=== PATIENT | male | born 1985 | race Caucasian/White ===

== ENCOUNTER 2020-09-01 13:47 | Outpatient (REF) | payer OTHER, SELFPAY ==
--- NOTE | 2020-09-01 13:53 | XR_ITS ---
EXAMINATION: XR HIP, LEFT CLINICAL INFORMATION: Left hip pain COMPARISON: None TECHNIQUE: Two views of the left hip. FINDINGS: There is no fracture or dislocation or destructive process. Bony mineralization appears normal. There is no joint narrowing or erosive change or chondrocalcinosis. 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 The left SI joint and pubis are unremarkable. XR/XR hip LT min 2V IMPRESSION: Normal left hip.
== END 2020-09-01 13:48 | disposition home or self-care (01) ==
LOC: HO.HMGCX 13:47
PROVIDERS: PCP Nurse Practitioner Family; Visit Provider Nurse Practitioner Family
DX: M25.552 Pain in left hip (principal)
CPT/HCPCS: 73502

== ENCOUNTER 2020-10-28 11:20 | Outpatient (REF) | payer OTHER, SELFPAY ==
[2020-10-28 14:38] LABS: Alanine Aminotransferase 74 U/L (0-40); Albumin Level 4.5 g/dL (3.5-5.0); Alkaline Phosphatase 65 U/L (39-117); Anion Gap 15 (12-20); Aspartate Amino Transferase 28 U/L (5-37); Bilirubin Total 0.9 mg/dL (0.0-1.0); Blood Urea Nitrogen 13 mg/dL (9-16); Carbon Dioxide 27 mmol/L (22-29); Chloride 100 mmol/L (96-108); Cholesterol 207 mg/dL; Estimated Glomerular Filt Rate > 60; Glucose Fasting 101 mg/dL (60-99); HDL Cholesterol 59 mg/dL; LDL Cholesterol Calculated 133 mg/dl; Potassium 4.3 mmol/l (3.3-5.1); Sodium 138 mmol/L (135-145); Total Protein 7.4 g/dL (6.5-8.0); Triglycerides 76 mg/dL
== END 2020-10-28 11:21 | disposition home or self-care (01) ==
LOC: HO.HMGCLDS 11:20
PROVIDERS: PCP Nurse Practitioner Family; Visit Provider Nurse Practitioner Family
DX: I10 Essential (primary) hypertension (principal)
CPT/HCPCS: 36415; 80053; 80061; 84443

== ENCOUNTER 2021-02-23 09:43 | Outpatient (REF) | payer OTHER, SELFPAY ==
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
== END 2021-02-23 09:44 | disposition home or self-care (01) ==
LOC: HO.HMGCX 09:43
PROVIDERS: PCP Nurse Practitioner Family; Visit Provider Nurse Practitioner Family
DX: S49.91XA Unspecified injury of right shoulder and upper arm, initial encounter (principal); X58.XXXA Exposure to other specified factors, initial encounter; Y93.9 Activity, unspecified; Y92.9 Unspecified place or not applicable; Y99.9 Unspecified external cause status
CPT/HCPCS: 73030

== ENCOUNTER → 2021-03-08 10:26 | Outpatient (BNVA) | payer OTHER, SELFPAY | PROVIDERS: PCP Nurse Practitioner Family; Visit Provider Internal Medicine | DX: F10.10 Alcohol abuse, uncomplicated (principal); R74.8 Abnormal levels of other serum enzymes | CPT/HCPCS: 80305; 99202 ==

== ENCOUNTER → 2021-03-12 10:17 | Outpatient (BNVA) | payer OTHER, SELFPAY | PROVIDERS: PCP Nurse Practitioner Family; Visit Provider Internal Medicine | DX: F10.10 Alcohol abuse, uncomplicated (principal) | CPT/HCPCS: 80305; 96372; 99212 ==

== ENCOUNTER → 2021-03-16 14:32 | Outpatient (BNVA) | payer OTHER, SELFPAY | PROVIDERS: Visit Provider Internal Medicine ==

== ENCOUNTER → 2021-03-26 10:54 | Outpatient (BNVA) | payer OTHER, SELFPAY | PROVIDERS: Visit Provider Internal Medicine | DX: F10.980 Alcohol use, unspecified with alcohol-induced anxiety disorder (principal) | CPT/HCPCS: 99211 ==

== ENCOUNTER 2021-06-03 11:19 | Outpatient (REF) | payer OTHER, SELFPAY | END 2021-06-03 11:20 | disposition home or self-care (01) | LOC: HO.LNP 11:19 | PROVIDERS: Visit Provider Hospitalist | DX: Z20.822 Contact with and (suspected) exposure to COVID-19 (principal) | CPT/HCPCS: U0003; U0005 ==

== ENCOUNTER 2021-06-29 14:09 | Outpatient (REF) | payer OTHER, SELFPAY ==
[2021-06-29 18:09] LABS: Alanine Aminotransferase 50 U/L (0-40); Albumin Level 4.3 g/dL (3.5-5.0); Alkaline Phosphatase 74 U/L (39-117); Anion Gap 13 (12-20); Aspartate Amino Transferase 18 U/L (5-37); Blood Urea Nitrogen 11 mg/dL (9-16); Calcium 9.6 mg/dL (8.4-10.2); Carbon Dioxide 27 mmol/L (22-29); Chloride 102 mmol/L (96-108); Estimated Glomerular Filt Rate > 60; Glucose Random 99 mg/dL (60-115); Potassium 4.1 mmol/L (3.3-5.1); Sodium 138 mmol/L (135-145); Total Protein 7.4 g/dL (6.5-8.0)
== END 2021-06-29 14:10 | disposition home or self-care (01) ==
LOC: HO.HMGCLDS 14:09
PROVIDERS: PCP Nurse Practitioner Family; Visit Provider Nurse Practitioner Family
DX: U07.1 COVID-19 (principal)
CPT/HCPCS: 36415; 80053

== ENCOUNTER 2022-08-02 10:34 | Outpatient (REF) | payer OTHER, SELFPAY ==
[2022-08-02 14:15] LABS: MANUAL DIFF FLAG NO
[2022-08-02 14:22] LABS: Appearance Urine Clear; Color Urine Yellow; Glucose Urine UA Negative (Negative); Leukocyte Esterase Urine Negative (Negative); Nitrite Urine Negative (Negative); PH 6.5 (5.0-9.0); Urine Blood Negative (Negative); Urine Ketones Negative (Negative); Urine Protein Negative (Neg-Trace)
[2022-08-02 14:26] LABS: Basophils Absolute Auto 0.1 X10*3/uL (0.0-0.2); Basophils Percent Auto 0.8 % (0-2); Eosinophils Absolute Auto 0.2 X10*3/uL (0.0-0.4); Eosinophils Percent Auto 2.4 % (0-4); Hematocrit 45.4 % (42.0-52.0); Hemoglobin 15.2 g/dl (14.0-18.0); Imm Gran Abs Auto 0.03 X10*3/uL (0.00-0.03); Imm Gran Pct Auto 0.4 % (0.0-0.4); Lymphocytes Absolute Auto 2.3 X10*3/uL (1.2-4.9); Lymphocytes Percent Auto 32.1 % (20-40); Mean Corpuscular HGB Conc 33.5 g/dl (31.0-36.0); Mean Corpuscular Volume 98.7 fL (80.0-98.0); Mean Platelet Volume 11.1 fL (9.4-12.4); Monocytes Absolute Auto 0.7 X10*3/uL (0.1-1.2); Monocytes Percent Auto 9.1 % (2-11); Neutrophils Absolute Auto 3.9 x10*3/uL (2.0-8.3); Neutrophils Percent Auto 55.2 % (45-73); Platelet Count 235 X10*3/uL (160-400); White Blood Count 7.1 X10*3/uL (4.8-10.8)
[2022-08-02 14:56] LABS: Alanine Aminotransferase 98 U/L (0-40); Albumin Level 4.4 g/dL (3.5-5.0); Alkaline Phosphatase 68 U/L (39-117); Anion Gap 17 (12-20); Aspartate Amino Transferase 30 U/L (5-37); Bilirubin Total 0.6 mg/dL (0.0-1.0); Blood Urea Nitrogen 11 mg/dL (9-16); Calcium 9.6 mg/dL (8.4-10.2); Carbon Dioxide 25 mmol/L (22-29); Chloride 99 mmol/L (96-108); Cholesterol 214 mg/dL; Estimated Glomerular Filt Rate > 60; Glucose Fasting 102 mg/dL (60-99); HDL Cholesterol 52 mg/dL; LDL Cholesterol Calculated 143 mg/dl; Potassium 4.6 mmol/L (3.3-5.1); Sodium 136 mmol/L (135-145); Total Protein 7.4 g/dL (6.5-8.0); Triglycerides 95 mg/dL
[2022-08-02 15:06] LABS: TSH reflex Free T4 1.01 uIU/mL (0.32-4.0)
== END 2022-08-02 10:35 | disposition home or self-care (01) ==
LOC: HO.HMGCLDS 10:34
PROVIDERS: PCP Nurse Practitioner Family; Visit Provider Nurse Practitioner Family
DX: Z00.00 Encounter for general adult medical examination without abnormal findings (principal)
CPT/HCPCS: 36415; 80053; 80061; 81003; 84443; 85025

== ENCOUNTER 2022-10-01 13:47 | Outpatient (REF) | payer OTHER, SELFPAY ==
[2022-10-01 15:03] LABS: Influenza A PCR NEGATIVE (Negative); Influenza B PCR NEGATIVE (Negative); Resp Syncy Virus RNA Qual PCR NEGATIVE (Negative); SARS COV2 PCR INHOUSE NEGATIVE (Negative)
== END 2022-10-01 13:48 | disposition home or self-care (01) ==
LOC: HO.LNP 13:47
PROVIDERS: Visit Provider Physician Assistant Medical
DX: Z20.822 Contact with and (suspected) exposure to COVID-19 (principal); R05.9 Cough, unspecified
CPT/HCPCS: 0241U

== ENCOUNTER 2022-10-30 10:27 | Emergency (ER) | payer OTHER, SELFPAY ==
[2022-10-30 10:32] VITALS: BP 145/82; PULSE 95; RESP 18; TEMP 36.8; O2SAT 97; BMI 51.7
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
== END 2022-10-30 12:11 | disposition home or self-care (01) ==
PROVIDERS: Emergency Provider Emergency Medicine; PCP Nurse Practitioner Family
DX: S13.4XXA Sprain of ligaments of cervical spine, initial encounter (principal); S39.012A Strain of muscle, fascia and tendon of lower back, initial encounter; V43.52XA Car driver injured in collision with other type car in traffic accident, initial encounter; Y93.9 Activity, unspecified; Y92.410 Unspecified street and highway as the place of occurrence of the external cause; Y99.9 Unspecified external cause status
CPT/HCPCS: 99283

== ENCOUNTER 2023-09-11 09:21 | Outpatient (REF) | payer OTHER, SELFPAY ==
[2023-09-11 11:13] LABS: MANUAL DIFF FLAG NO
[2023-09-11 11:38] LABS: Basophils Absolute Auto 0.1 X10*3/uL (0.0-0.2); Basophils Percent Auto 1.3 % (0-2); Eosinophils Absolute Auto 0.2 X10*3/uL (0.0-0.4); Eosinophils Percent Auto 2.4 % (0-4); Hematocrit 43.5 % (42.0-52.0); Hemoglobin 14.8 g/dl (14.0-18.0); Imm Gran Abs Auto 0.07 X10*3/uL (0.00-0.03); Lymphocytes Absolute Auto 2.5 X10*3/uL (1.2-4.9); Lymphocytes Percent Auto 36.4 % (20-40); Mean Platelet Volume 10.6 fL (9.4-12.4); Monocytes Absolute Auto 0.7 X10*3/uL (0.1-1.2); Monocytes Percent Auto 9.6 % (2-11); Neutrophils Absolute Auto 3.4 x10*3/uL (2.0-8.3); Neutrophils Percent Auto 49.3 % (45-73); Platelet Count 222 X10*3/uL (160-400); Red Blood Count 4.35 X10*6/uL (4.60-5.80)
[2023-09-11 11:48] LABS: Appearance Urine Clear; Color Urine Yellow; Glucose Urine UA Negative (Negative); Leukocyte Esterase Urine Negative (Negative); Nitrite Urine Negative (Negative); Urine Blood Negative (Negative); Urine Ketones Negative (Negative); Urine Protein Negative (Neg-Trace)
[2023-09-11 12:10] LABS: Alanine Aminotransferase 49 U/L (0-40); Albumin Level 4.1 g/dL (3.5-5.0); Alkaline Phosphatase 81 U/L (39-117); Anion Gap 11 (12-20); Aspartate Amino Transferase 22 U/L (5-37); Bilirubin Total 0.3 mg/dL (0.0-1.0); Blood Urea Nitrogen 12 mg/dL (9-16); Carbon Dioxide 26 mmol/L (22-29); Chloride 104 mmol/L (96-108); Cholesterol 195 mg/dL (<200); Estimated Glomerular Filt Rate > 60; Glucose Fasting 92 mg/dL (60-99); HDL Cholesterol 53 mg/dL (>40); LDL Cholesterol Calculated 117 mg/dL (<100); Potassium 4.1 mmol/L (3.3-5.1); Sodium 137 mmol/L (135-145); Total Protein 7.3 g/dL (6.5-8.0); Triglycerides 127 mg/dL (<150)
[2023-09-11 12:28] LABS: TSH reflex Free T4 1.12 uIU/mL (0.32-4.0)
== END 2023-09-11 09:22 | disposition home or self-care (01) ==
LOC: HO.HMGCLDS 09:21
PROVIDERS: PCP Nurse Practitioner Family; Visit Provider Nurse Practitioner Family
DX: Z00.00 Encounter for general adult medical examination without abnormal findings (principal)
CPT/HCPCS: 36415; 80053; 80061; 81003; 84443; 85025

== ENCOUNTER 2024-05-01 08:22 | Outpatient (AMB) | payer OTHER, SELFPAY ==
--- NOTE | 2024-05-01 08:23 | MHC.PC.OV ---
Vital Signs 05/01/24 08:25 Height 5 ft 9 in Weight 356 lb BMI 52.6 BP 120/84 Blood Pressure Location Lt brachial Position Sitting Pulse 90 Pulse Source Pulse Oximeter Pulse Oximetry (%) 98 Oxygen Delivery Method Room Air Intake Visit Reasons: Overdue for Annual PE Intake Note: Patient here for physical exam. Allergies ceclor Allergy (Unknown, Verified 05/01/24 08:25) hives; tolerated PCN and amox fine since then, hives cefaclor [From CECLOR] Allergy (Unknown, Verified 05/01/24 08:25) HIVES Medication List - Last Reconciled 05/01/24 by MICHELLE Montoya buspirone 5 mg PO BID 90 days lisinopril 20 mg PO DAILY omeprazole 20 mg PO DAILY Ventolin HFA 90 mcg/actuation (albuterol sulfate) 2 puffs PO Q6H PRN NS Tobacco use date assessed: 05/01/24 Dental Screening Dental Screen Date: 05/01/24 Did you have a dental visit in the last 12 months?: Yes Did you have a dental problem in the last 6 months where you did not have access to dental care?: No Was dental information given to patient?: Patient has dentist HPI Overdue for Annual PE HPI Details Pt is here for a PE. Will order labs. Pt is seeing a therapist. He has tried buspirone in the past for anxiety which helped. He would like to restart this, will send. Denies any SI and HI. Pt continues to use alcohol. Will have team speak with pt. [facility] Medical History Elevated liver enzymes Dyslipidemia Hepatitis Sleep apnea Depression Alcoholic Asthma GERD (gastroesophageal reflux disease) HTN (hypertension) Surgical History No pertinent past surgical history Family History Father Asthma HTN (hypertension) Substance use disorder Mental health disorder Mother No problems noted. Maternal Grandmother Diabetes Cancer Sister No problems noted. Son No problems noted. Paternal Grandfather Substance use disorder Mental health disorder Social History Housing: House Alcohol intake: current Alcohol intake frequency: 3 or more drinks per day Alcohol type: beer Patient Tobacco Use Status: Former Tobacco user Cigarettes Per Day: 10 Years Smoked: stopped 6 months ago,since 14 years old e-Cigarette/Vaping Use: Never Used Second Hand Smoke Exposure: Yes service: No Current occupational status: employed Current occupation: [employer], [employer] Current occupational exposures/hazards: No Cognitive needs: No Hearing needs: No Vision needs: No Questionnaire PHQ-9 Over the last 2 weeks, how often have you been bothered by any of the following problems? 89665 - PHQ-9 Billing: Patient declined-do not bill Source: Developed by Drs. Alex Beyer, Zakiya Kirkland, Ry Kelly and colleagues, with an educational christy from [employer]. Thrive Questionnaire Date Thrive assessed: 05/01/24 What is your living situation today?: I choose not to answer this question Within the past 12 months, did the food you bought not last and you didn't have the money to get more?: I choose not to answer this question Within the past 12 months, did you worry whether your food would run out before you got money to buy more?: I choose not to answer this question Do you have trouble paying for medicines?: I choose not to answer this question Do you have trouble getting transportation to medical appointments?: I choose not to answer this question Do you have trouble paying your heating and electricity bill?: I choose not to answer this question Do you have trouble taking care of your child, family member or friend?: I choose not to answer this question Do you have trouble with day-to-day activities such as bathing, preparing meals, shopping, managing finances, etc.?: I choose not to answer this question Are you currently unemployed and looking for a job?: I choose not to answer this question Are you interested in more education?: I choose not to answer this question Currently or been in a relationship where the following occur: I choose not to answer THRIVE Score: 0 AUDIT C Alcohol Use Questionnaire (AUDIT-C) 1. How often do you have a drink containing alcohol?: 4 or more times a week 2. How many drinks containing alcohol do you have on a typical day when you are drinking?: 7 to 9 3. How often do you have six or more drinks on one occasion?: Daily or almost daily Total Score: 11 CHANELLE-7 AMB Questionnaire CHANELLE-7 Date CHANELLE - 7 assessed: 05/01/24 Source: Developed by Drs. Alex Beyer, Zakiya Kirkland, Ry Kelly and colleagues, with an educational christy from [employer]. CHANELLE-7 Assessment Billing CHANELLE-7 Assessment Tool: pt declined-do not bill Review of Systems Const Reports as per HPI, Denies chills and Denies fever(s) Eyes Denies blurry vision ENT Denies vertigo, Denies dizziness and Denies sore throat Card Denies chest pain at rest, Denies chest pain with activity, Denies diaphoresis, Denies dyspnea and Denies dyspnea on exertion Resp Denies cough, Denies dyspnea, Denies dyspnea on exertion and Denies wheezing GI Denies abdominal pain, Denies melena, Denies hematochezia, Denies constipation, Denies diarrhea and Denies loose stools Denies hematuria Musc Denies numbness and Denies tingling Skin/Breast Denies lesions Neuro Denies vertigo, Denies dizziness, Denies numbness and Denies tingling Psych Denies anxiety, Denies depression, Denies homicidal ideation, Denies suicidal ideation and Denies other (substance abuse) Aller/Immun Denies wheezing Physical exam (Primary Care) Vital Signs: Last Vital Signs Pulse 90 05/01/24 08:25 BP 120/84 05/01/24 08:25 Pulse Ox 98 05/01/24 08:25 Oxygen Delivery Method Room Air 05/01/24 08:25 BMI result Body Mass Index 52.6 Tobacco/Smoking Status: Tobacco use Status Tobacco use date assessed 05/01/24 05/01/24 08:29 Patient Tobacco Use Status Former Tobacco user 05/01/24 08:24 e-Cigarette/Vaping Use Never Used 05/01/24 08:24 Thrive Assessment: Date of Thrive Assessment Date Thrive assessed 05/01/24 05/01/24 08:29 Currently or been in a relationship where the following occur: I choose not to answer Const General: cooperative Nutritional Appearance: obese morbidly obese Orientation/consciousness: patient oriented x3 HENMT Head: Yes normal to inspection, Yes normocephalic and Yes atraumatic Ears: TM's normal bilaterally Eyes General: appearance normal, both eyes and all related structures Alignment and Position: alignment normal and position normal Neck Neck: Yes normal visual inspection and Yes no lymphadenopathy Thyroid: Thyroid normal Resp Effort & Inspection: normal respiratory effort Auscultation: clear to auscultation bilaterally Cardio Rate: regular rate Rhythm: regular rhythm Heart sounds: S1 normal heart sound present, S2 normal heart sound present and no murmurs GI Palpation (GI): Soft to palpation and nontender Auscultation: normal bowel sounds Male General Exam: Yes normal external exam Penis: normal penis Scrotum: scrotum normal, testes descended bilaterally and no inguinal hernias Testes: no testicular mass Skin Rashes: no rashes Neuro General: patient oriented x3, moves all extremities, no focal motor deficits and deep tendon reflexes 2+ bilaterally Romberg Test: Negative Psych Appearance: grossly normal Mental Status: mental status grossly normal Speech and movement: Normal speech and movement present Affect: normal affect Attitude: cooperative Thought process: Normal thought process present Thought content: Normal thought content present Insight: Good insight present (Psych) Judgement: Good judgement present (Psych) Assessment and Plan Assessment & Plan (1) Encounter for routine adult physical exam with abnormal findings: Code(s): Z00. - Encounter for general adult medical examination with abnormal findings Plan: Labs ordered (2) Anxiety: Code(s): F41.9 - Anxiety disorder, unspecified Plan: Starting buspirone (3) ETOH abuse: Code(s): F10.10 - Alcohol abuse, uncomplicated Plan: bret spoke with pt and gave him numbers for addiction medicine and AA. Plan The patient agreed to the use of a behavioral medical director for this encounter. Scribed for GEMMA Coronado by Gabi Obregon behavioral medical director, on 05/01/2024 at 08:35 EST. Orders: Orders Comprehensive [place]. Panel Fast Today Z00. - Encounter for general adult medical examination with abnormal findings TSH reflex Free T4 Today Z00. - Encounter for general adult medical examination with abnormal findings Lipid Panel Today Z00. - Encounter for general adult medical examination with abnormal findings Complete Blood Count Auto Diff Today Z00. - Encounter for general adult medical examination with abnormal findings UA CC w/rflx Micro + Cult Today Z00. - Encounter for general adult medical examination with abnormal findings Medications: New buspirone 5 mg PO BID 90 days 180 tabs 0RF Coding Level of Care Code Est Pt Level 3 (06001) Est Pt Prev Care 18-39y(61462) Diagnoses Encounter for routine adult physical exam with abnormal findings Z00.01 Anxiety F41.9 ETOH abuse F10.10
[2024-05-01 08:25] VITALS: BP 120/84; PULSE 90; O2SAT 98; BMI 52.6
== END 2024-05-01 09:29 | disposition home or self-care (01) ==
LOC: HO.HMGC 08:22
PROVIDERS: PCP Nurse Practitioner Family; Visit Provider Nurse Practitioner Family
DX: Z00.01 Encounter for general adult medical examination with abnormal findings (principal); F41.9 Anxiety disorder, unspecified; F10.10 Alcohol abuse, uncomplicated
CPT/HCPCS: 99213; 99395

== ENCOUNTER 2024-05-01 09:29 | Outpatient (REF) | payer OTHER, SELFPAY ==
[2024-05-01 13:02] LABS: MANUAL DIFF FLAG NO
[2024-05-01 13:08] LABS: Basophils Absolute Auto 0.1 X10*3/uL (0.0-0.2); Eosinophils Absolute Auto 0.1 X10*3/uL (0.0-0.4); Eosinophils Percent Auto 1.7 % (0-4); Hematocrit 45.4 % (42.0-52.0); Hemoglobin 15.6 g/dl (14.0-18.0); Imm Gran Abs Auto 0.04 X10*3/uL (0.00-0.03); Imm Gran Pct Auto 0.6 % (0.0-0.4); Lymphocytes Absolute Auto 2.3 X10*3/uL (1.2-4.9); Mean Corpuscular HGB Conc 34.4 g/dl (31.0-36.0); Mean Corpuscular Hemoglobin 34.2 pg (27.0-33.0); Mean Corpuscular Volume 99.6 fL (80.0-98.0); Mean Platelet Volume 10.4 fL (9.4-12.4); Monocytes Absolute Auto 0.6 X10*3/uL (0.1-1.2); Monocytes Percent Auto 8.3 % (2-11); Neutrophils Absolute Auto 4.1 x10*3/uL (2.0-8.3); Neutrophils Percent Auto 56.4 % (45-73); Platelet Count 251 X10*3/uL (160-400); Red Blood Count 4.56 X10*6/uL (4.60-5.80); Red Cell Distribution Width 11.7 % (11.0-16.0); White Blood Count 7.3 X10*3/uL (4.8-10.8)
[2024-05-01 13:30] LABS: Alanine Aminotransferase 51 U/L (0-40); Albumin Level 4.1 g/dL (3.5-5.0); Alkaline Phosphatase 79 U/L (39-117); Anion Gap 12 (12-20); Appearance Urine Clear; Aspartate Amino Transferase 19 U/L (5-37); Bilirubin Total 0.3 mg/dL (0.0-1.0); Blood Urea Nitrogen 13 mg/dL (9-16); Calcium 10.1 mg/dL (8.4-10.2); Carbon Dioxide 26 mmol/L (22-29); Chloride 101 mmol/L (96-108); Cholesterol 208 mg/dL (<200); Color Urine Yellow; Estimated Glomerular Filt Rate > 60; Glucose Fasting 104 mg/dL (60-99); Glucose Urine UA Negative (Negative); HDL Cholesterol 57 mg/dL (>40); LDL Cholesterol Calculated 134 mg/dL (<100); Leukocyte Esterase Urine Negative (Negative); Nitrite Urine Negative (Negative); Potassium 4.4 mmol/L (3.3-5.1); Sodium 135 mmol/L (135-145); Total Protein 7.4 g/dL (6.5-8.0); Triglycerides 89 mg/dL (<150); Urine Blood Negative (Negative); Urine Ketones Negative (Negative); Urine Protein Negative (Neg-Trace)
[2024-05-01 14:30] LABS: TSH reflex Free T4 1.01 uIU/mL (0.32-4.0)
== END 2024-05-01 09:30 | disposition home or self-care (01) ==
LOC: HO.HMGCLDS 09:29
PROVIDERS: PCP Nurse Practitioner Family; Visit Provider Nurse Practitioner Family
DX: Z00.01 Encounter for general adult medical examination with abnormal findings (principal)
CPT/HCPCS: 36415; 80053; 80061; 81003; 84443; 85025

== ENCOUNTER 2024-05-15 08:46 | Outpatient (REF) | payer OTHER, SELFPAY ==
--- NOTE | ~2024-05-15 | US_ITS ---
EXAMINATION: US ABDOMEN COMPLETE CLINICAL INFORMATION: Abnormal levels of other serum enzymes. Elevated liver enzymes. COMPARISON: Ultrasound abdomen complete 01/14/2020 and 11/24/2017. TECHNIQUE: Real-time imaging of the abdominal viscera. Technically difficult study secondary to body habitus. FINDINGS: PANCREAS: Poorly visualized. ABDOMINAL AORTA: Limited visualization. Imaged portion mid abdominal aorta is within normal limits in caliber. INFERIOR VENA CAVA: Visualized portions are normal. LIVER: Hepatomegaly, 18.9 cm. Increased hepatic parenchymal heterogeneity and echogenicity could be associated with hepatocellular disease/hepatic steatosis and severely limits visualization. Correlation with liver function tests and clinical exam recommended to determine further management. GALLBLADDER: No gallstones. No gallbladder wall thickening. COMMON BILE DUCT: Normal in caliber measuring 0.5 cm in diameter. RIGHT KIDNEY: No hydronephrosis. No renal calculi. Limited visualization. The kidney measures 12.8 cm in maximum dimension. LEFT KIDNEY: No hydronephrosis. No renal calculi. Limited visualization. The kidney measures 13.4 cm in maximum dimension. SPLEEN: Normal. The spleen measures 11.8 cm in maximum dimension. FREE FLUID: None. US/US abdomen complete IMPRESSION: Hepatomegaly, 18.9 cm. Increased hepatic parenchymal heterogeneity and echogenicity could be associated with hepatocellular disease/hepatic steatosis and severely limits visualization. Correlation with liver function tests and clinical exam recommended to determine further management.
== END 2024-05-15 08:47 | disposition home or self-care (01) ==
LOC: HO.HMGCX 08:46
PROVIDERS: PCP Nurse Practitioner Family; Visit Provider Nurse Practitioner Family
DX: R74.8 Abnormal levels of other serum enzymes (principal)
CPT/HCPCS: 76700

== ENCOUNTER 2024-06-10 08:12 | Outpatient (AMB) | payer OTHER, SELFPAY ==
--- NOTE | 2024-06-10 07:19 | A.OFFPC_ITS ---
Intake Visit Reasons: Discuss meds iPhone Allergies ceclor Allergy (Unknown, Verified 06/10/24 07:31) hives; tolerated PCN and amox fine since then, hives cefaclor [From CECLOR] Allergy (Unknown, Verified 06/10/24 07:31) HIVES Medication List - Last Reconciled 06/10/24 by MICHELLE Montoya clonidine HCl 0.1 mg PO BID 30 days lisinopril 20 mg PO DAILY omeprazole 20 mg PO DAILY Ventolin HFA 90 mcg/actuation (albuterol sulfate) 2 puffs PO Q6H PRN NS Tobacco use date assessed: 05/01/24 Dental Screening Dental Screen Date: 05/01/24 HPI Discuss meds iPhone HPI Details Pt reports being on clonidine in the past which helped with anxiety and alcohol abuse. He would like to restart this, will send. Pt reports that buspirone does not help. Denies any SI and HI. Pt also has a recovery therapist as well he sees on a regular basis. [facility] Medical History Fatty liver Elevated liver enzymes Dyslipidemia Hepatitis Sleep apnea Depression Alcoholic Asthma GERD (gastroesophageal reflux disease) HTN (hypertension) Surgical History No pertinent past surgical history Family History Father Asthma HTN (hypertension) Substance use disorder Mental health disorder Mother No problems noted. Maternal Grandmother Diabetes Cancer Sister No problems noted. Son No problems noted. Paternal Grandfather Substance use disorder Mental health disorder Social History Housing: House Alcohol intake: current Alcohol intake frequency: 3 or more drinks per day Alcohol type: beer Patient Tobacco Use Status: Former Tobacco user Cigarettes Per Day: 10 Years Smoked: stopped 6 months ago,since 14 years old e-Cigarette/Vaping Use: Never Used Second Hand Smoke Exposure: Yes service: No Current occupational status: employed Current occupation: [employer] Current occupational exposures/hazards: No Cognitive needs: No Hearing needs: No Vision needs: No Questionnaire Thrive Questionnaire Date Thrive assessed: 05/01/24 CHANELLE-7 AMB Questionnaire CHANELLE-7 Date CHANELLE - 7 assessed: 05/01/24 Source: Developed by Drs. Alex Beyer, Zakiya Kirkland, Ry Kelly and colleagues, with an educational christy from [employer]. Review of Systems Const Reports as per HPI Physical exam (Primary Care) Tobacco/Smoking Status: Tobacco use Status Tobacco use date assessed 05/01/24 06/10/24 07:20 Patient Tobacco Use Status Former Tobacco user 06/10/24 07:20 e-Cigarette/Vaping Use Never Used 06/10/24 07:20 Thrive Assessment: Date of Thrive Assessment Date Thrive assessed 05/01/24 06/10/24 07:20 Const General: cooperative Orientation/consciousness: patient oriented x3 Neuro General: patient oriented x3 Psych Appearance: grossly normal Mental Status: mental status grossly normal Speech and movement: Clear speech present Affect: normal affect Attitude: cooperative Thought process: Normal thought process present Thought content: Normal thought content present Insight: Good insight present (Psych) Judgement: Good judgement present (Psych) Telehealth Telehealth Telehealth Platform: [facility] Location of provider rendering services: practice address Location of patient: address on file Patient Identification confirmed using: Name, : Yes Telehealth method: video Patient verbally consented to treatment: Yes Patient verbally consented to billing insurance company: Yes Patient informed of any privacy concerns related to visit: Yes Minutes spent on Phone/Video with Pt.: 10 Assessment and Plan Assessment & Plan (1) ETOH abuse: Code(s): F10.10 - Alcohol abuse, uncomplicated Plan: Starting clonidine, has a recovery therapist as well. (2) Anxiety: Code(s): F41.9 - Anxiety disorder, unspecified Plan: Starting clonidine Plan The patient agreed to the use of a biomedical technician for this encounter. Scribed for MICHELLE Coronado by Gabi Obregon biomedical technician, on 06/10/2024 at 07:15 EST. Medications: New clonidine HCl 0.1 mg PO BID 60 tabs 3RF 30 days Coding Level of Care Code Tele Est Pt Level 3 (52856) Diagnoses ETOH abuse F10.10 Anxiety F41.9
== END 2024-06-10 08:13 | disposition home or self-care (01) ==
LOC: HO.HMGC 08:12
PROVIDERS: PCP Nurse Practitioner Family; Visit Provider Nurse Practitioner Family
DX: F10.10 Alcohol abuse, uncomplicated (principal); F41.9 Anxiety disorder, unspecified
CPT/HCPCS: 99213

== ENCOUNTER 2024-07-30 11:57 | Outpatient (AMB) | payer OTHER, SELFPAY ==
--- NOTE | 2024-07-30 12:46 | MHC.OFFWIV ---
Intake Vital Signs 07/30/24 12:48 Weight 360 lb BP 130/90 H Blood Pressure Location Rt brachial Position Sitting Pulse 95 Pulse Source Pulse Oximeter Temp 98.4 F Temp Source Oral Pulse Oximetry (%) 98 Oxygen Delivery Method Room Air Intake Visit Reasons: EP-sore throat Intake Note: Patient here for sore throat that has been present for about 1 week. Patient Tobacco Use Status: Former Tobacco user Allergies ceclor Allergy (Unknown, Verified 07/30/24 12:50) hives; tolerated PCN and amox fine since then, hives cefaclor [From CECLOR] Allergy (Unknown, Verified 07/30/24 12:50) HIVES Do you need a note to return to daycare/school/sports/work: No HPI HPI Comments History of Present Illness Details Pt is a 39 YO M c/o a sore throat. He states he had sinus pain, ear pain and head congestion about 2 weeks ago and started feeling better. He states his son had strep 2-3 weeks ago. About a week ago, he started with a sore throat. He states it is burning. He denies a fever or cough or continued sinus pain or ear pain. [facility] Medical History Fatty liver Elevated liver enzymes Dyslipidemia Hepatitis Sleep apnea Depression Alcoholic Asthma GERD (gastroesophageal reflux disease) HTN (hypertension) Surgical History No pertinent past surgical history Family History Father Asthma HTN (hypertension) Substance use disorder Mental health disorder Mother No problems noted. Maternal Grandmother Diabetes Cancer Sister No problems noted. Son No problems noted. Paternal Grandfather Substance use disorder Mental health disorder Social History Housing: House Alcohol intake: current Alcohol intake frequency: 3 or more drinks per day Alcohol type: beer Patient Tobacco Use Status: Former Tobacco user Cigarettes Per Day: 10 Years Smoked: stopped 6 months ago,since 14 years old e-Cigarette/Vaping Use: Never Used Second Hand Smoke Exposure: Yes service: No Current occupational status: employed Current occupation: [employer] Current occupational exposures/hazards: No Cognitive needs: No Hearing needs: No Vision needs: No Review of Systems Const All systems reviewed & are unremarkable except as noted in HPI and below Physical Exam Vital Signs: Last Vital Signs Temp 98.4 F 07/30/24 12:48 Pulse 95 07/30/24 12:48 BP 130/90 H 07/30/24 12:48 Pulse Ox 98 07/30/24 12:48 Oxygen Delivery Method Room Air 07/30/24 12:48 Const General: cooperative, healthy appearing, comfortable and no acute distress Orientation/consciousness: patient oriented x3 Limitations: no limitations HEENT Head: Yes normal to inspection Ears: hearing grossly normal bilaterally, external ears normal, TM normal on the right and TM abnormal (left side) dull, wth effusion and erythematous General nose exam: Normal external nose present, Normal nares present and No nasal discharge present Face and sinus: Yes normal facial exam and Yes sinuses nontender Mouth: Normal oral and palatal mucosa present and moist mucous membranes Throat: Yes tonsils normal, Yes uvula midline and Yes posterior oropharynx abnormal (Erythema and exudates) Eyes General: appearance normal, both eyes and all related structures Neck Neck: Yes normal visual inspection Resp Effort & Inspection: normal respiratory effort, able to speak in complete sentences, no respiratory distress, not tachypneic, no tripod positioning and no use of accessory muscles Skin General skin exam: no rashes or lesions noted Neuro General: patient oriented x3 Extrem General: Yes normal to inspection and Yes no clubbing, cyanosis or edema Results AMB Rapid Strep AMB Rapid Strep Negative Last Edit by LENA Hansen on 07/30/24 13:01 Assessment & Plan Assessment & Plan (1) Strep pharyngitis: Code(s): J02.0 - Streptococcal pharyngitis Plan: Rapid strep negative however will treat base on PE and story. Sent amoxicillin to pharmacy, pt has allergy to cefaclor, noted in allergies that he does tolerate PCN and AMOX. Plan see above Orders: Orders AMB Rapid Strep Screen Today Z13.9 - Encounter for screening, unspecified Medications: New amoxicillin 500 mg PO Q12H 20 tabs 0RF Coding Level of Care Code Est Pt Level 3 (79825) Diagnoses Strep pharyngitis J02.0
[2024-07-30 12:48] VITALS: BP 130/90; PULSE 95; TEMP 36.9; O2SAT 98
== END 2024-07-30 13:16 | disposition home or self-care (01) ==
PROVIDERS: PCP Nurse Practitioner Family; Visit Provider Physician Assistant
DX: Z13.9 Encounter for screening, unspecified (principal); J02.0 Streptococcal pharyngitis

== ENCOUNTER → 2024-07-30 11:57 | Outpatient (BNVA) | payer OTHER, SELFPAY | PROVIDERS: PCP Nurse Practitioner Family; Visit Provider Physician Assistant | DX: J02.0 Streptococcal pharyngitis (principal) | CPT/HCPCS: 87880; 99212 ==

== ENCOUNTER 2025-03-24 14:11 | Outpatient (AMB) | payer OTHER, SELFPAY ==
--- NOTE | 2025-03-24 14:35 | MHC.OFFWIV ---
Intake Vital Signs 03/24/25 14:38 Height 5 ft 9 in Weight 371 lb BMI 54.8 BP 134/86 Blood Pressure Location Rt brachial Position Sitting Pulse 88 Pulse Source Pulse Oximeter Temp 98 F Temp Source Oral Pulse Oximetry (%) 97 Oxygen Delivery Method Room Air Intake Visit Reasons: EP ? sinus infection Intake Note: Pt had seasonal allergies 2/3 weeks ago but is still congested, States its dry and feels pressure. Patient Tobacco Use Status: Former Tobacco user Allergies ceclor Allergy (Unknown, Verified 03/24/25 14:39) hives; tolerated PCN and amox fine since then, hives cefaclor [From CECLOR] Allergy (Unknown, Verified 03/24/25 14:39) HIVES HPI HPI Comments History of Present Illness Details History of Present Illness - The patient is a 40-year-old male presenting with sinus pain and pressure. - Symptoms initiated around three weeks ago during high pollen exposure. - Dunne symptoms included excessive mucus, sinus pain, congestion, pressure, and post-nasal drip causing coughing. - Improvements have been noted but with continued pressure, throat dryness, and green nasal discharge, he came in for an evaluation. - Facial and dental pain tenderness was observed, with a consistent daily improvement in symptoms. - He denies fever, chills, CP, SOB, abd pain, n/v/d, ear pain, sore throat, or sick contacts. - He does vape. Physical Exam General: Cooperative, healthy appearing, comfortable, no acute distress and well developed Orientation: Patient oriented x3 Head: Normal to inspection Ears: Hearing grossly normal bilaterally. TMs normal bilaterally. Nose: Normal external nose present, no lesions in the nasal passage. Face and sinus: Facial pain and pressure noted, tenderness to touch maillary and frontal sinuses Throat: No erthema noted in the oropharynx, no exudates noted. Eyes: Appearance normal, both eyes and all related structures Neck: Normal visual inspection and Yes full ROM. No lymphadenopathy noted. Respiratory: Normal respiratory effort and able to speak in complete sentences. Clear to auscultation bilaterally Cardiovascular: Regular rate and rhythm. Normal S1 and S2 GI: Normal to inspection. Soft to palpation and nontender Skin: No rashes or lesions noted Patient was informed and verbally consented to the use of an ambient scribe for clinic note documentation during this visit. [facility] Medical History Fatty liver Elevated liver enzymes Dyslipidemia Hepatitis Sleep apnea Depression Alcoholic Asthma GERD (gastroesophageal reflux disease) HTN (hypertension) Surgical History No pertinent past surgical history Family History Father Asthma HTN (hypertension) Substance use disorder Mental health disorder Mother No problems noted. Maternal Grandmother Diabetes Cancer Sister No problems noted. Son No problems noted. Paternal Grandfather Substance use disorder Mental health disorder Social History Housing: House Alcohol intake: current Alcohol intake frequency: 3 or more drinks per day Alcohol type: beer Patient Tobacco Use Status: Former Tobacco user Cigarettes Per Day: 10 Years Smoked: stopped 6 months ago,since 14 years old e-Cigarette/Vaping Use: Never Used Second Hand Smoke Exposure: Yes service: No Current occupational status: employed Current occupation: [employer] Current occupational exposures/hazards: No Cognitive needs: No Hearing needs: No Vision needs: No Review of Systems Const All systems reviewed & are unremarkable except as noted in HPI and below Physical Exam Vital Signs: Last Vital Signs Temp 98 F 03/24/25 14:38 Pulse 88 03/24/25 14:38 BP 134/86 03/24/25 14:38 Pulse Ox 97 03/24/25 14:38 Oxygen Delivery Method Room Air 03/24/25 14:38 BMI result Body Mass Index 54.8 Assessment & Plan Assessment & Plan (1) Sinusitis: Code(s): J32.9 - Chronic sinusitis, unspecified Qualifiers: Sinusitis location: unspecified location Chronicity: acute Recurrence: non-recurrent Qualified Code(s): J01.90 - Acute sinusitis, unspecified Plan Most likely sinusitis vs URI vs allergic rhinitis vs covid vs flu plan- - tylenol or motrin as needed - steam showers - Acute Rhinosinusitis is managed with antibiotics given prolonged symptoms and green nasal discharge, indicating bacterial infection. - Prescriptions for nasal spray and decongestant provided, alongside supportive care recommendations including steam inhalation, showers, and obpl-emw-jqoluds analgesics. - Continued use of saline nasal rinse and nasal application of Vaseline to address dryness. - Prescriptions sent to the patient's pharmacy for access to medications. Medications: New doxycycline hyclate 100 mg PO bid 10 days 20 tabs 0RF cetirizine-pseudoephedrine 5-120 mg ER 1 tab PO BID 7 days 14 tabs 0RF triamcinolone acetonide administer into each nostril 1 spray intranasal DAILY 7 days 16.9 mL 0RF Coding Level of Care Code Est Pt Level 3 (51336) Diagnoses Acute non-recurrent sinusitis, unspecified location J01.90 Sinusitis location: unspecified location Chronicity: acute Recurrence: non-recurrent
[2025-03-24 14:38] VITALS: BP 134/86; PULSE 88; TEMP 36.6; O2SAT 97; BMI 54.8
== END 2025-03-24 15:40 | disposition home or self-care (01) ==
PROVIDERS: PCP Nurse Practitioner Family; Visit Provider Physician Assistant Medical
DX: J01.90 Acute sinusitis, unspecified (principal)

== ENCOUNTER → 2025-03-24 14:11 | Outpatient (BNVA) | payer OTHER, SELFPAY | PROVIDERS: PCP Nurse Practitioner Family; Visit Provider Physician Assistant Medical | DX: J01.90 Acute sinusitis, unspecified (principal) | CPT/HCPCS: 99212 ==

== ENCOUNTER 2025-08-25 08:44 | Outpatient (AMB) | payer OTHER, SELFPAY ==
[2025-08-25 08:46] VITALS: BP 154/90; PULSE 99; RESP 18; TEMP 37.1; O2SAT 97; BMI 55.4
--- NOTE | 2025-08-25 08:46 | A.OFFPC_ITS ---
Vital Signs 08/25/25 08:46 Height 5 ft 9 in Weight 375 lb BMI 55.4 BP 154/90 H Blood Pressure Location Lt brachial Position Sitting Respiration 18 Pulse 99 Pulse Source Pulse Oximeter Temp 98.7 F Temp Source Oral Pulse Oximetry (%) 97 Oxygen Delivery Method Room Air Intake Visit Reasons: Followup meds Net Fisher Required: No Accompanied by: Self / Same As Patient Allergies ceclor Allergy (Unknown, Verified 08/25/25 08:46) hives; tolerated PCN and amox fine since then, hives cefaclor (From CECLOR) Allergy (Unknown, Verified 08/25/25 08:46) HIVES Medication List - Last Reconciled 08/25/25 by Robin Metcalf, [employer] MANAGER- cetirizine-pseudoephedrine 5-120 mg ER 1 tab PO BID 7 days lisinopril 20 mg PO DAILY omeprazole 20 mg PO DAILY triamcinolone acetonide 1 spray intranasal DAILY 7 days Ventolin HFA 90 mcg/actuation (albuterol sulfate) 2 puffs PO Q6H PRN NS Tobacco use date assessed: 08/25/25 Dental Screening Dental Screen Date: 08/25/25 Did you have a dental visit in the last 12 months?: Yes Did you have a dental problem in the last 6 months where you did not have access to dental care?: No Was dental information given to patient?: Patient has dentist HPI Followup meds HPI Details Chief Complaint Patient presents for follow-up of hypertension. History of Present Illness The patient is a 40-year-old male presenting for follow-up. He has a history of hypertension, morbid obesity, and daily alcohol consumption. The patient reports that when he quit alcohol for about a week, his blood pressure was much better. He expresses a desire to quit drinking by himself and has declined referrals for support meetings, therapy, or addiction medicine at this time. The patient also reports ongoing left hip pain, describing a popping sensation. An X-ray performed five years ago for this issue was negative. Social History - Substance Use: The patient drinks alco hol daily. - Substance Use: He reports previously q uitting alcohol for one week. - Substance Use: The patient does not wi sh to attend support meetings, see a therapist, or engage with addiction medicine services, preferring to attempt cessation on his own. Health Maintenance - Alcohol Cessation: The importance of q uitting alcohol was reinforced to the patient. Review of Systems - Cardiovascular: Denies chest pain. - Respiratory: Denies excessive shortnes s of breath. - Neurological: Denies headaches and diz ziness. - Eyes: Denies blurred vision. - Musculoskeletal: Reports ongoing left hip pain with a popping sensation. - Psychiatric: Denies suicidal or homici kierra ideation. Physical Exam General: Cooperative, healthy appearing, comfortable, no acute distress and well developed, morbidly obese Orientation: Patient oriented x3 Limitations: No limitations Head: Normal to inspection Ears: Hearing grossly normal bilaterally Nose: Normal external nose present Face and sinus: Normal facial exam Eyes: Appearance normal, both eyes and all related structures Neck: Normal visual inspection and Yes full ROM Respiratory: Normal respiratory effort and able to speak in complete sentences. Clear to auscultation bilaterally Cardiovascular: Regular rate and rhythm. Normal S1 and S2 GI: Normal to inspection. Soft to palpation and nontender Skin: No rashes or lesions noted Neuro: Patient oriented x3 Extremities: Normal to inspection, except for some tenderness in the left hip joint without adduction, no pain or popping, no range of motion of left lower extremity Results - Imaging: A left hip X-ray from five ye ars ago was negative. Plan 1. Hypertension The patient's hypertension is likely related to his daily alcohol consumption, as evidenced by his report of much better blood pressure readings during a week of abstinence. An increase in his lisinopril dose may be considered in the future. Prior to any medication adjustment, lab work will be ordered to assess kidney function. 2. Alcohol Use Disorder The importance of quitting alcohol to manage hypertension was reinforced. The patient declined referrals to support meetings, therapy, or addiction medicine services, stating he wants to quit on his own. 3. Left Hip Pain The patient has ongoing left hip pain and reports a popping sensation, although examination revealed only tenderness on adduction with no palpable popping, clicking, or limitation in range of motion. A repeat left hip X-ray will be ordered, as the previous one from five years ago was negative. 4. Morbid Obesity The patient is noted to be morbidly obese, which is a contributing factor to his hypertension. Discussion Notes I explained to the patient my belief that his hypertension is connected to his daily alcohol use, especially since his blood pressure improved when he abstained for a week. I reinforced the importance of quitting alcohol, but he declined offers for formal support programs, stating he wants to quit on his own. I informed him that while I may increase his lisinopril in the future, I must first check his kidney function with lab tests. For his left hip pain, I recommended a new X-ray because his last one was five years ago. Patient Instructions - It is very important that you quit dri nking alcohol, as this is affecting your blood pressure. - Please get blood work done soon so we can check your kidney function. - We will get a new X-ray of your left h ip to investigate the cause of your pain. [facility] Medical History Fatty liver Elevated liver enzymes Dyslipidemia Hepatitis Sleep apnea Depression Alcoholic Asthma GERD (gastroesophageal reflux disease) HTN (hypertension) Surgical History No pertinent past surgical history Family History Father Asthma HTN (hypertension) Substance use disorder Mental health disorder Mother No problems noted. Maternal Grandmother Diabetes Cancer Sister No problems noted. Son No problems noted. Paternal Grandfather Substance use disorder Mental health disorder Social History Housing: House Alcohol intake: current Alcohol intake frequency: 3 or more drinks per day Alcohol type: beer Patient Tobacco Use Status: Former Tobacco user Cigarettes Per Day: 10 Years Smoked: stopped 6 months ago,since 14 years old e-Cigarette/Vaping Use: Never Used Second Hand Smoke Exposure: Yes service: No Current occupational status: employed Current occupation: [employer] Current occupational exposures/hazards: No Cognitive needs: No Hearing needs: No Vision needs: No Questionnaire PHQ-9 Over the last 2 weeks, how often have you been bothered by any of the following problems? 1. Little interest or pleasure in doing things: not at all 2. Feeling down, depressed, or hopeless: not at all 3. Trouble falling or staying asleep, or sleeping too much: not at all 4. Feeling tired or having little energy: not at all 5. Poor appetite or overeating: not at all 6. Feeling bad about yourself - or that you are a failure or have let yourself or your family down: not at all 7. Trouble concentrating on things, such as reading the newspaper or watching television: not at all 8. Moving or speaking so slowly that other people could have noticed. Or the opposite - being so fidgety or restless that you have been moving around a lot more than usual: not at all 9. Thoughts that you would be better off or of hurting yourself in some way: not at all Total score: 0 Depression Screening Interpretation: Negative Depression Screening Done: Yes 03532 - PHQ-9 Billing: Yes Source: Developed by Drs. Alex Beyer, Zakiya Kirkland, Ry Kelly and colleagues, with an educational christy from [employer]. Thrive Questionnaire Date Thrive assessed: 05/18/25 I am a: Patient What is your living situation today?: I have a steady place to live Within the past 12 months, did the food you bought not last and you didn't have the money to get more?: I choose not to answer this question Within the past 12 months, did you worry whether your food would run out before you got money to buy more?: I choose not to answer this question Do you have trouble paying for medicines?: I choose not to answer this question Do you have trouble getting transportation to medical appointments?: I choose not to answer this question Do you have trouble paying your heating and electricity bill?: I choose not to answer this question Do you have trouble taking care of your child, family member or friend?: I choose not to answer this question Do you have trouble with day-to-day activities such as bathing, preparing meals, shopping, managing finances, etc.?: I choose not to answer this question Are you currently unemployed and looking for a job?: I choose not to answer this question Are you interested in more education?: I choose not to answer this question Please select the resources that you would like help with: None Currently or been in a relationship where the following occur: I choose not to answer THRIVE Score: 0 CHANELLE-7 AMB Questionnaire CHANELLE-7 Date CHANELLE - 7 assessed: 08/25/25 Feeling nervous, anxious, or on edge: 0 = Not at all Not being able to stop or control worryin = Not at all Worrying too much about different things: 0 = Not at all Trouble relaxin = Not at all Being so restless that it is hard to sit still: 0 = Not at all Becoming easily annoyed or irritable: 0 = Not at all Feeling afraid as if something awful might happen: 0 = Not at all Total CHANELLE-7 score (0-4 normal; 5-9 mild; 10-14 moderate; 15-21 severe): 0 Source: Developed by Drs. Alex Beyer, Zakiya Kirkland, Ry Kelly and colleagues, with an educational christy from [employer]. CHANELLE-7 Assessment Billing CHANELLE-7 Assessment Tool: CHANELLE-7 Assessment 18433 Physical exam (Primary Care) Vital Signs: Last Vital Signs Temp 98.7 F 08/25/25 08:46 Pulse 99 08/25/25 08:46 Resp 18 08/25/25 08:46 BP 154/90 H 08/25/25 08:46 Pulse Ox 97 08/25/25 08:46 Oxygen Delivery Method Room Air 08/25/25 08:46 BMI result Body Mass Index 55.4 Tobacco/Smoking Status: Tobacco use Status Tobacco use date assessed 08/25/25 08/25/25 08:47 Patient Tobacco Use Status Former Tobacco user 08/25/25 08:47 e-Cigarette/Vaping Use Never Used 08/25/25 08:47 PHQ-9: PHQ-9 Score PHQ-9: Total score 0 08/25/25 09:46 Depression Screening Interpretation: Negative Thrive Assessment: Date of Thrive Assessment Date Thrive assessed 05/18/25 08/25/25 08:47 Currently or been in a relationship where the following occur: I choose not to answer Coding Level of Care Code Est Pt Level 3 (74335) Diagnoses ETOH abuse F10.10 Essential hypertension I10 Hypertension type: essential hypertension Left hip pain M25.552 Additional Codes CHANELLE-7 Assessment Billing - CHANELLE-7 Assessment Tool: CHANELLE-7 Assessment 27722 ([id number]) PHQ-9 - 08048 - PHQ-9 Billing: Yes ([id number]) Assessment & Plan Assessment & Plan (1) ETOH abuse: Code(s): F10.10 - Alcohol abuse, uncomplicated Category: Social Hx (2) HTN (hypertension): Code(s): I10 - Essential (primary) hypertension Category: Medical Qualifiers: Hypertension type: essential hypertension Qualified Code(s): I10 - Essential (primary) hypertension (3) Left hip pain: Code(s): M25.552 - Pain in left hip Category: Medical Plan . Orders: Orders Complete Blood Count Auto Diff Today F10.10 - Alcohol abuse, uncomplicated, I10 - Essential (primary) hypertension UA CC w/rflx Micro + Cult Today F10.10 - Alcohol abuse, uncomplicated, I10 - Essential (primary) hypertension Lipid Panel Today F10.10 - Alcohol abuse, uncomplicated, I10 - Essential (primary) hypertension XR hip LT min 2V Today M25.552 - Pain in left hip Comprehensive [place]. Panel Fast Today F10.10 - Alcohol abuse, uncomplicated, I10 - Essential (primary) hypertension TSH reflex Free T4 Today F10.10 - Alcohol abuse, uncomplicated, I10 - Essential (primary) hypertension PT Evaluation and Treatment Today M25.552 - Pain in left hip
== END 2025-08-25 09:33 | disposition home or self-care (01) ==
LOC: HO.HMCC 08:44
PROVIDERS: PCP Nurse Practitioner Family; Visit Provider Nurse Practitioner Family
DX: F10.10 Alcohol abuse, uncomplicated (principal); I10 Essential (primary) hypertension; M25.552 Pain in left hip

== ENCOUNTER 2025-08-25 08:44 | Outpatient (REF) | payer OTHER, SELFPAY ==
--- NOTE | ~2025-08-25 | XR_ITS ---
EXAMINATION: XR HIP, LEFT CLINICAL INFORMATION: M25.552 - Pain in left hip COMPARISON: September 01, 2020 TECHNIQUE: AP and oblique views of the left hip. FINDINGS: No acute cortical disruption or malalignment. No lytic or blastic lesions. There is preservation of joint space. No subcutaneous emphysema. No metallic or radiopaque foreign body. No vascular calcifications. XR/XR hip LT min 2V IMPRESSION: No acute fracture or dislocation. Negative x-ray. Electronically signed by: Rohit Nettles MD 08/25/2025 11:22 AM REYES RASHID
== END 2025-08-25 08:45 | disposition home or self-care (01) ==
LOC: HO.HMGCX 08:44
PROVIDERS: PCP Nurse Practitioner Family; Visit Provider Nurse Practitioner Family
DX: M25.552 Pain in left hip (principal); I10 Essential (primary) hypertension; F10.10 Alcohol abuse, uncomplicated; E66.01 Morbid (severe) obesity due to excess calories; Z68.43 Body mass index [BMI] 50.0-59.9, adult
CPT/HCPCS: 73502; 96127; 99212

== ENCOUNTER → 2025-08-25 09:44 | Outpatient (BNV) | payer OTHER, SELFPAY | PROVIDERS: PCP Nurse Practitioner Family; Visit Provider Radiology Diagnostic Radiology | DX: M25.552 Pain in left hip (principal) | CPT/HCPCS: 73502 ==

== ENCOUNTER 2025-09-29 16:00 | Outpatient (REF) | payer OTHER, SELFPAY ==
[2025-09-30 13:18] LABS: Resp Syncy Virus RNA Qual PCR NEGATIVE (Negative); SARS COV2 PCR INHOUSE NEGATIVE (Negative)
== END 2025-09-29 16:01 | disposition home or self-care (01) ==
LOC: HO.LNP 16:00
PROVIDERS: Nurse Practitioner Family; PCP Nurse Practitioner Family
DX: J06.9 Acute upper respiratory infection, unspecified (principal); R09.89 Other specified symptoms and signs involving the circulatory and respiratory systems; Z87.891 Personal history of nicotine dependence; Z13.89 Encounter for screening for other disorder
CPT/HCPCS: 87637; 87880; 99212

== ENCOUNTER 2025-09-29 16:00 | Outpatient (AMB) | payer OTHER, SELFPAY ==
[2025-09-29 16:36] VITALS: BP 142/60; PULSE 89; TEMP 37.1; O2SAT 97; BMI 56.0
--- NOTE | 2025-09-29 16:36 | AM.OFFWIN_ITS ---
Intake Vital Signs 09/29/25 16:36 Height 5 ft 9 in Weight 379 lb BMI 56.0 BP 142/60 H Blood Pressure Location Lt brachial Position Sitting Pulse 89 Pulse Source Pulse Oximeter Temp 98.7 F Temp Source Oral Pulse Oximetry (%) 97 Oxygen Delivery Method Room Air Intake Visit Reasons: EP Sore throat Intake Note: pt presents with sore throat, sinus congestion for over a week Patient Tobacco Use Status: Former Tobacco user Allergies ceclor Allergy (Unknown, Verified 09/29/25 16:39) hives; tolerated PCN and amox fine since then, hives Do you need a note to return to daycare/school/sports/work: No HPI HPI Comments History of Present Illness Details 40-year-old male presents to the walk-in clinic with URI symptoms for over one week. Reports sore throat with painful swallowing (odynophagia), sinus congestion and pressure, and headaches. He has a history of asthma and reports occasional shortness of breath, relieved with PRN use of his rescue inhaler. He has been using an OTC Neti Pot with good symptomatic relief. Denies fevers, chills, nausea, or vomiting. Denies chest pain or persistent wheezing. [facility] Medical History (Updated 09/29/25 @ 17:26 by Erika Lange NP) Acute respiratory disease Fatty liver Elevated liver enzymes Dyslipidemia Hepatitis Sleep apnea Depression Alcoholic Asthma GERD (gastroesophageal reflux disease) HTN (hypertension) Surgical History No pertinent past surgical history Family History Father Asthma HTN (hypertension) Substance use disorder Mental health disorder Mother No problems noted. Maternal Grandmother Diabetes Cancer Sister No problems noted. Son No problems noted. Paternal Grandfather Substance use disorder Mental health disorder Social History Housing: House Alcohol intake: current Alcohol intake frequency: 3 or more drinks per day Alcohol type: beer Patient Tobacco Use Status: Former Tobacco user Cigarettes Per Day: 10 Years Smoked: stopped 6 months ago,since 14 years old e-Cigarette/Vaping Use: Never Used Second Hand Smoke Exposure: Yes service: No Current occupational status: employed Current occupation: [employer] Current occupational exposures/hazards: No Cognitive needs: No Hearing needs: No Vision needs: No Review of Systems Const All systems reviewed & are unremarkable except as noted in HPI and below Physical Exam Vital Signs: Last Vital Signs Temp 98.7 F 09/29/25 16:36 Pulse 89 09/29/25 16:36 BP 142/60 H 09/29/25 16:36 Pulse Ox 97 09/29/25 16:36 Oxygen Delivery Method Room Air 09/29/25 16:36 BMI result Body Mass Index 56.0 Const General: no acute distress Nutritional Appearance: obese Orientation/consciousness: patient oriented x3 HEENT Head: Yes normocephalic Ears: external ears normal and TM abnormal bulging bilateral and with fluid behind the TM bilateral General nose exam: Abnormal mucous membranes and turbinates present erythematous Face and sinus: Yes sinus tenderness Mouth: moist mucous membranes and other (Pharyngeal erythema, no exudates, uvula midline. ) Throat: Yes uvula midline Resp Effort & Inspection: normal respiratory effort, able to speak in complete sentences, no audible wheezes and no cough Auscultation: clear to auscultation bilaterally, no crackles, no rales, no rhonchi and no wheezes Cardio Heart sounds: S1 normal heart sound present and S2 normal heart sound present Neuro General: patient oriented x3 Results AMB Rapid Strep AMB Rapid Strep Negative Last Edit by Pamela Nye CMA on 09/29/25 16:5 3 Results Reviewed Results Reviewed: Laboratory Last Values Strep Scn Rapid Clinic Negative 09/29/25 16:47 Assessment & Plan Assessment & Plan (1) Acute respiratory disease: Code(s): J06.9 - Acute upper respiratory infection, unspecified Plan: Rapid Strep negative. Ordered SARs. Acute Upper Respiratory Infection Acute Sinusitis ? likely viral Acute viral Pharyngitis Continue OTC analgesics (acetaminophen or ibuprofen) as needed for throat pain and headaches Continue saline nasal irrigation (Neti Pot) Start intranasal corticosteroid (e.g., Fluticasone) daily for congestion and sinus pressure Throat lozenges and warm saltwater gargles for sore throat. Encouraged hydration and rest Reviewed signs of bacterial infection or asthma exacerbation. Antibiotics: Not indicated at this time given lack of fever and likely viral etiology Orders: Orders AMB Rapid Strep Screen Today Z13.9 - Encounter for screening, unspecified SARS-CoV2/FLU/RSV Today R09.89 - Other specified symptoms and signs involving the circulatory and respiratory systems Coding Level of Care Code Est Pt Level 4 (43079) Diagnoses Acute respiratory disease J06.9 Time Spent (min) 20
== END 2025-09-29 16:59 | disposition home or self-care (01) ==
PROVIDERS: PCP Nurse Practitioner Family; Visit Provider Nurse Practitioner Family
DX: J06.9 Acute upper respiratory infection, unspecified (principal); Z13.9 Encounter for screening, unspecified

== ENCOUNTER 2025-10-15 08:58 | Outpatient (AMB) | payer OTHER, SELFPAY ==
[2025-10-15 09:00] VITALS: BP 120/72; PULSE 83; TEMP 37.1; O2SAT 96; BMI 56.1
--- NOTE | 2025-10-15 09:00 | AM.OFFWIN_ITS ---
Intake Vital Signs 10/15/25 09:00 Height 5 ft 9 in Weight 380 lb BMI 56.1 BP 120/72 Blood Pressure Location Lt brachial Position Sitting Pulse 83 Pulse Source Pulse Oximeter Temp 98.7 F Pulse Oximetry (%) 96 Oxygen Delivery Method Room Air Intake Visit Reasons: EP raspy voice sore throat Intake Note: pt presents with loss of voice and pain to trachea area Patient Tobacco Use Status: Former Tobacco user Allergies ceclor Allergy (Unknown, Verified 10/15/25 09:03) hives; tolerated PCN and amox fine since then, hives Do you need a note to return to daycare/school/sports/work: No HPI EP raspy voice sore throat HPI Details This is a 40 year old male [facility] report of ongoing hoarse voice and sore throat. He states this has been ongoing for over 3 weeks now. He was seen here on 09/29 for similar symptoms in addition to URI symptoms. Rapid strep and Covid/Flu/RSV tests were negative. He reports that his URI symptoms have mostly resolved however he continues to have a very sore throat and hoarse voice. He states in the mornings, he can only whisper even when trying to yell. He denies any fevers, shortness of breath, or GI symptoms. He has been using orc analesics and lozenes without much relief. [facility] Medical History Acute respiratory disease Fatty liver Elevated liver enzymes Dyslipidemia Hepatitis Sleep apnea Depression Alcoholic Asthma GERD (gastroesophageal reflux disease) HTN (hypertension) Surgical History No pertinent past surgical history Family History Father Asthma HTN (hypertension) Substance use disorder Mental health disorder Mother No problems noted. Maternal Grandmother Diabetes Cancer Sister No problems noted. Son No problems noted. Paternal Grandfather Substance use disorder Mental health disorder Social History Housing: House Alcohol intake: current Alcohol intake frequency: 3 or more drinks per day Alcohol type: beer Patient Tobacco Use Status: Former Tobacco user Cigarettes Per Day: 10 Years Smoked: stopped 6 months ago,since 14 years old e-Cigarette/Vaping Use: Never Used Second Hand Smoke Exposure: Yes service: No Current occupational status: employed Current occupation: [employer] Current occupational exposures/hazards: No Cognitive needs: No Hearing needs: No Vision needs: No Review of Systems Const All systems reviewed & are unremarkable except as noted in HPI and below Physical Exam Vital Signs: BMI result Body Mass Index 56.1 Const General: cooperative and no acute distress Nutritional Appearance: obese Limitations: no limitations HEENT Head: Yes normal to inspection Ears: hearing grossly normal bilaterally General nose exam: Normal external nose present Face and sinus: Yes normal facial exam Mouth: Normal oral and palatal mucosa present Throat: Yes uvula midline and Yes posterior oropharynx abnormal (erythema, no exudate) Neck Neck: Yes no lymphadenopathy Resp Effort & Inspection: normal respiratory effort and Actively coughing Quality: productive Auscultation: clear to auscultation bilaterally Cardio Rate: regular rate Rhythm: regular rhythm Skin General skin exam: no rashes or lesions noted Extrem General: Yes capillary refill normal and Yes no clubbing, cyanosis or edema Psych Appearance: grossly normal Mental Status: mental status grossly normal Speech and movement: Normal speech and movement present Results AMB Rapid Strep AMB Rapid Strep Negative Last Edit by Pamela Nye CMA on 10/15/25 09:1 7 Assessment & Plan Assessment & Plan (1) Pharyngitis: Code(s): J02.9 - Acute pharyngitis, unspecified Qualifiers: Pharyngitis/tonsillitis etiology: unspecified etiology Qualified Code(s): J02.9 - Acute pharyngitis, unspecified Plan: This patient has ongoing pharyngitis and laryngitis for <3 weeks now. Negative rapid strep and viral testing. We discussed treatment methods and at this point he is willing to try antibiotics - he reports having negative side effects from most abx aside from Azithromycin. I will send this. I also recommended a short course of Prednisone for the perisistent pharyngeal erythema. He reports taking Prednisone when he was younger for ? breathing issues, and he did not like the way it made him feel, however he cannot recall specifics. We discussed trying low-dose prednisone for a few days to see if this provides some benefit for his inflam mation. He states he will start the abx. and see how he feels, and follow that with the prednisone if needed. We reviewed indications, use, possible side effects of medications. He can continue Tylenol, lozenges, warm saltwater gargles. If he does not improve with treatment, he can return to the clinic for further evaluation. All questions were answered and patient verbalizes understanding and agrees to plan. Orders: Orders AMB Rapid Strep Screen Today Z13.9 - Encounter for screening, unspecified Medications: New azithromycin For 250 mg dose pack: take 500 mg today (day 1), then 250 mg for 4 days (days 2-5) PO 6 tabs 0RF J02.9 - Acute pharyngitis, unspecified prednisone Take up to two tablets daily for 5 days. 20 mg (2 x 10 mg) PO DAILY 10 tabs 0RF 5 days J02.9 - Acute pharyngitis, unspecified Coding Level of Care Code Est Pt Level 4 (04313) Diagnoses Pharyngitis, unspecified etiology J02.9 Pharyngitis/tonsillitis etiology: unspecified etiology
== END 2025-10-15 09:27 | disposition home or self-care (01) ==
PROVIDERS: PCP Nurse Practitioner Family; Visit Provider Nurse Practitioner Family
DX: Z13.9 Encounter for screening, unspecified (principal); J02.9 Acute pharyngitis, unspecified

== ENCOUNTER → 2025-10-15 08:58 | Outpatient (BNVA) | payer OTHER, SELFPAY | PROVIDERS: PCP Nurse Practitioner Family; Visit Provider Nurse Practitioner Family | DX: J02.9 Acute pharyngitis, unspecified (principal); Z87.891 Personal history of nicotine dependence | CPT/HCPCS: 87880; 99212 ==